=== PATIENT | male | born 1945 | race Caucasian/White ===

== ENCOUNTER 2016-09-02 15:35 | Inpatient (IN) | payer MEDICARE ==
[~2016-09-02] VITALS: Ht 177.8 cm; Wt 90.0 kg
[~2016-09-02 15:35] MED LIST: AMBI10TA PO; LOSA50TA PO; PRED1SUS EACH EYE; PREV30CA11 PO; SIMV40TA PO
[2016-09-02 15:39] VITALS: BP 154/80; PULSE 80; RESP 20; TEMP 97.9; O2SAT 96
--- NOTE | 2016-09-02 15:52 | PD ---
Physical Exam Time Seen by Provider: 15:48 Narrative 71yo M c/o disorientation, lightheadedness, numbness to back of neck started last night w/ worsening of sx this morning. Denies focal deficits or weakness, slurred speech, CINTRON, fever, vomiting, chest pain, SOB, abd pain. Patient seen in triage. VS reviewed. Awaiting bed placement. Data Data Last Documented VS Vital Signs Date Time Temp Pulse Resp B/P Pulse Ox O2 Delivery O2 Flow Rate FiO2 09/02/16 15:39 97.9 80 20 154/80 96 Room Air MDM Supervised Visit with MELISSA: Teena Hobson Sep 02, 2016 15:52
[2016-09-02] MEDS ORDERED: TRAZ50TA12 PO (16:02)
[2016-09-02] MEDS ORDERED: SODIUM CHLOR 0.9% 1000 ML INJ 1,000 ML IV SCH ×2 (16:15→18:45)
--- NOTE | 2016-09-02 16:18 | PD ---
HPI Chief Complaint: Neuro Symptoms/ Deficits Time Seen by Provider: 16:02 Travel History International Travel<30 days: No Contact w/Intl Traveler<30days: No Traveled to known affect area: No History of Present Illness HPI 71-year-old male complains of lightheadedness, dizziness, disorientation, blurring vision and numbness third to the neck and back area. Patient states that the symptoms started last night. Patient denies any headache. Patient states that the dizziness is not associated with head movement. Patient states that the dizziness is worse on standing up physician. Patient denies any neck pain. Patient states that he had numbness to neck and upper back last night but not today. Patient denies any chest pain or shortness of breath. Patient denies abdominal pain. Patient denies any nausea vomiting diarrhea. Patient denies any fever chills. Patient denies any recent head injury. Patient denies any history of TIA or CVA. Patient has history GERD, hypertension, hyperlipidemia. Patient denies any history diabetes. Patient is a nonsmoker. Patient denies any illicit drugs or alcohol abuse. PFSH Past Medical History Autoimmune Disease: No Blood Disorders: No Anxiety: No Depression: No Cancer: No Cardiovascular Problems: Yes (htn) High Cholesterol: Yes Chemotherapy: No Cerebrovascular Accident: No Diabetes: No Diminished Hearing: No GERD: Yes Glaucoma: No Headaches: No Hepatitis: No Hiatal Hernia: No Hypertension: Yes Musculoskeletal: No Neurologic: No Psychiatric: No Respiratory: No Seizures: No Thyroid Disease: No Past Surgical History Abdominal Surgery: No Ear Surgery: No Endocrine Surgery: No Eye Surgery: No Genitourinary Surgery: No Gynecologic Surgery: No Oral Surgery: No Pacemaker: No Thoracic Surgery: No Other Surgery: Yes Social History Alcohol Use: No Tobacco Use: No Substance Use: No Allergies-Medications (Allergen,Severity, Reaction): Coded Allergies: No Known Allergies (Verified , 09/02/16) Reported Meds & Prescriptions Reported Meds & Active Scripts Active Reported Trazodone (Trazodone HCl) 50 Mg Tab 50 Mg PO HS Pred Forte Opth 1% (Prednisolone Acetate Opth 1%) 1% Susp 1 Drop EACH EYE QID Prevacid (Lansoprazole) 30 Mg Capdr 30 Mg PO DAILY Losartan (Losartan Potassium) 50 Mg Tab 50 Mg PO DAILY Simvastatin 40 Mg Tab 40 Mg PO HS Ambien (Zolpidem Tartrate) 10 Mg Tab 10 Mg PO HS PRN Review of Systems General / Constitutional: No: Fever Eyes: Positive: Blurred Vision, No: Visual changes HENT: Positive: Lightheadedness, No: Headaches Cardiovascular: No: Chest Pain or Discomfort Respiratory: No: Shortness of Breath Gastrointestinal: No: Abdominal Pain Genitourinary: No: Dysuria Musculoskeletal: No: Pain Skin: No Rash Neurologic: No: Weakness Psychiatric: No: Depression Endocrine: No: Polydipsia Hematologic/Lymphatic: No: Easy Bruising Physical Exam Narrative GENERAL: Well-nourished, well-developed patient. SKIN: Focused skin assessment warm/dry. HEAD: Normocephalic. EYES: No scleral icterus. No injection or drainage. Pupils 2 mm equal reactive. NECK: Supple, trachea midline. No JVD or lymphadenopathy. CARDIOVASCULAR: Regular rate and rhythm without murmurs, gallops, or rubs. RESPIRATORY: Breath sounds equal bilaterally. No accessory muscle use. GASTROINTESTINAL: Abdomen soft, non-tender, nondistended. MUSCULOSKELETAL: No cyanosis, or edema. BACK: Nontender without obvious deformity. No CVA tenderness. Neurologic exam: Patient's awake and alert oriented 3. No obvious focal neurological deficit. Deep tendon reflexes 2+ and equal. Negative Babinski. Data Data Last Documented VS Vital Signs Date Time Temp Pulse Resp B/P Pulse Ox O2 Delivery O2 Flow Rate FiO2 09/02/16 17:34 72 20 150/72 09/02/16 16:36 100 09/02/16 15:39 97.9 Room Air Orders Complete Blood Count With Diff (09/02/16 16:08) Comprehensive Metabolic Panel (09/02/16 16:08) Creatine Kinase (Cpk) (09/02/16 16:08) Troponin I (09/02/16 16:08) Prothrombin Time / Inr (Pt) (09/02/16 16:08) Act Partial Throm Time (Ptt) (09/02/16 16:08) Urinalysis - C+S If Indicated (09/02/16 16:08) Thyroid Stimulating Hormone (09/02/16 16:08) Chest, Single Ap (09/02/16 16:08) Ct Brain W/O Iv Contrast(Rout) (09/02/16 16:08) Iv Access Insert/Monitor (09/02/16 16:08) Ecg Monitoring (09/02/16 16:08) Oximetry (09/02/16 16:08) Sodium Chlor 0.9% 1000 Ml Inj (Ns 1000 M (09/02/16 16:15) CKMB (09/02/16 16:20) CKMB% (09/02/16 16:20) Mri Brain W/O Contrast (09/02/16 17:51) Mra Brain W/O Contrast (Cow) (09/02/16 17:51) Mra Carotids W Contrast (09/02/16 17:51) Electrocardiogram (09/02/16 16:00) Labs Laboratory Tests Test 09/02/16 16:20 White Blood Count 5.6 TH/MM3 Red Blood Count 5.14 MIL/MM3 Hemoglobin 14.9 GM/DL Hematocrit 45.4 % Mean Corpuscular Volume 88.3 FL Mean Corpuscular Hemoglobin 29.0 PG Mean Corpuscular Hemoglobin 32.8 % Concent Red Cell Distribution Width 14.6 % Platelet Count 204 TH/MM3 Mean Platelet Volume 8.0 FL Neutrophils (%) (Auto) 59.9 % Lymphocytes (%) (Auto) 27.4 % Monocytes (%) (Auto) 9.1 % Eosinophils (%) (Auto) 2.9 % Basophils (%) (Auto) 0.7 % Neutrophils # (Auto) 3.4 TH/MM3 Lymphocytes # (Auto) 1.5 TH/MM3 Monocytes # (Auto) 0.5 TH/MM3 Eosinophils # (Auto) 0.2 TH/MM3 Basophils # (Auto) 0.0 TH/MM3 CBC Comment DIFF FINAL Differential Comment Prothrombin Time 10.2 SEC Prothromb Time International 0.9 RATIO Ratio Activated Partial 26.8 SEC Thromboplast Time Sodium Level 142 MEQ/L Potassium Level 4.2 MEQ/L Chloride Level 107 MEQ/L Carbon Dioxide Level 27.8 MEQ/L Anion Gap 7 MEQ/L Blood Urea Nitrogen 20 MG/DL Creatinine 1.50 MG/DL Estimat Glomerular Filtration 46 ML/MIN Rate Random Glucose 96 MG/DL Calcium Level 9.1 MG/DL Total Bilirubin 0.4 MG/DL Aspartate Amino Transf 25 U/L (AST/SGOT) Alanine Aminotransferase 42 U/L (ALT/SGPT) Alkaline Phosphatase 59 U/L Total Creatine Kinase 311 U/L Creatine Kinase MB 2.5 NG/ML Creatine Kinase MB % 0.8 % Troponin I LESS THAN 0.02 NG/ML Total Protein 7.1 GM/DL Albumin 3.8 GM/DL Thyroid Stimulating Hormone 1.380 uIU/ML [address] [place] [address] Medical Decision Making Medical Screen Exam Complete: Yes Emergency Medical Condition: Yes Interpretation(s) Last Impressions Head CT 09/02/161607 Signed Impressions: Service Date/Time: Friday, September 02, 2016 16:52 - CONCLUSION: Normal examination for a patient of this age. Bo Peacock MD Chest X-Ray 09/02/161607 Signed Impressions: Service Date/Time: Friday, September 02, 2016 16:13 - CONCLUSION: 1. No acute cardiopulmonary disease. Houston Mcneill MD 1748 PM. CBC within normal limit. 1824 PM. BUN 20. Creatinine 1.50. Cardiac enzymes are normal. Differential Diagnosis Differential diagnosis including viral syndrome, migraine complex, TIA, CVA, electrolyte abnormality, dehydration, vertigo. Narrative Course 71-year-old male with lightheadedness dizziness or disorientation blurry vision and numbness to the mid back and neck. Normal saline solution 70 cc an hour. Head of bed at 30. O2 2 L nasal cannula. Neurology consultation. I spoke with Dr. Nava, neurologist studio control operator. Patient will be admitted to rule out CVA. Diagnosis Primary Impression: Acute CVA (cerebrovascular accident) Reji Person MD Sep 02, 2016 16:17
--- NOTE | 2016-09-02 16:32 | RADRPT ---
EXAM DATE/TIME: 09/02/2016 16:13 [facility] COMPARISON: No previous studies available for comparison. INDICATIONS : Dizziness, weakness, and shortness of breath. MEDICAL HISTORY : None. SURGICAL HISTORY : None. ENCOUNTER: Initial ACUITY: 2 days PAIN SCORE: 0/10 LOCATION: chest FINDINGS: A single view of the chest demonstrates the lungs to be symmetrically aerated without evidence of mas s, infiltrate or effusion. The cardiomediastinal contours are unremarkable. Osseous structures are intact. CONCLUSION: 1. No acute cardiopulmonary disease. Houston Mcneill MD on September 02, 2016 at 16:30 Board Certified Radiologist. This report was verified electronically.
[2016-09-02 16:36] VITALS: O2SAT 100
--- NOTE | 2016-09-02 17:01 | RADRPT ---
EXAM DATE/TIME: 09/02/2016 16:52 [facility] COMPARISON: No previous studies available for comparison. INDICATIONS : Lightheaded,blurred vision, numbness to mid back. RADIATION DOSE: 37.36 CTDIvol (mGy) MEDICAL HISTORY : Cardiovascular disease. Hypertension. SURGICAL HISTORY : None. ENCOUNTER: Initial ACUITY: 1 day PAIN SCALE: 0/10 LOCATION: Bilateral cranial TECHNIQUE: Multiple contiguous axial images were obtained of the head. Using automated exposure control and adj ustment of the mA and/or kV according to patient size, radiation dose was kept as low as reasonably a chievable to obtain optimal diagnostic quality images. DICOM format image data is available electro nically for review and comparison. FINDINGS: CEREBRUM: The ventricles are normal for age. No evidence of midline shift, mass lesion, hemorrhage or acute in farction. No extra-axial fluid collections are seen. POSTERIOR FOSSA: The cerebellum and brainstem are intact. The 4th ventricle is midline. The cerebellopontine angle i s unremarkable. EXTRACRANIAL: The visualized portion of the orbits is intact. SKULL: The calvaria is intact. No evidence of skull fracture. CONCLUSION: Normal examination for a patient of this age. Bo Peacock MD on September 02, 2016 at 16:59 Board Certified Radiologist. This report was verified electronically.
[2016-09-02 17:02] LABS: AUTOMATED NEUTROPHIL # 3.4 TH/MM3 (1.8-7.7); BASOPHIL % 0.7 % (0.0-2.0); EOSINOPHIL # 0.2 TH/MM3 (0-0.4); EOSINOPHIL % 2.9 % (0.0-4.0); HEMATOCRIT 45.4 % (39.0-51.0); HEMO FLAGS DIFF FINAL; LYMPH % 27.4 % (9.0-44.0); LYMPHOCYTE # 1.5 TH/MM3 (1.0-4.8); MEAN CELL VOLUME 88.3 FL (80.0-100.0); MEAN CORPUSCULAR HGB CONC 32.8 % (32.0-36.0); MONO % 9.1 % (0.0-8.0); NEUT % 59.9 % (16.0-70.0); PLATELET COUNT 204 TH/MM3 (150-450); RED BLOOD COUNT 5.14 MIL/MM3 (4.50-5.90); RED CELL DISTRIBUTION WIDTH 14.6 % (11.6-17.2); WHITE BLOOD COUNT 5.6 TH/MM3 (4.0-11.0)
[2016-09-02 17:19] LABS: APTT (PATIENT) 26.8 SEC (24.3-30.1); INTERNATIONAL NORMALIZED RATIO 0.9 RATIO; PROTHROMBIN TIME - PATIENT 10.2 SEC (9.8-11.6)
[2016-09-02 17:34] VITALS: BP 150/72; PULSE 72; RESP 20
[2016-09-02 17:38] LABS: ALKALINE PHOSPHATASE 59 U/L (45-117); CREATINE KINASE 311 U/L (39-308); TOTAL BILIRUBIN ADULT 0.4 MG/DL (0.2-1.0)
[2016-09-02 17:50] LABS: CKMB 2.5 NG/ML (0.5-3.6)
[2016-09-02 18:07] LABS: ALT (GPT) 42 U/L (12-78); ANION GAP 7 MEQ/L (5-15); AST (GOT) 25 U/L (15-37); BICARBONATE 27.8 MEQ/L (21.0-32.0); BLOOD UREA NITROGEN 20 MG/DL (7-18); CHLORIDE 107 MEQ/L (98-107); GLOMERULAR FILTRATION RATE 46 ML/MIN (>89); POTASSIUM 4.2 MEQ/L (3.5-5.1); SODIUM (NA) 142 MEQ/L (136-145)
[2016-09-02] MEDS ORDERED: SODIUM CHLORIDE 0.9% FLUSH 10 ML FLUSH IVF PRN (18:45)
[2016-09-02] MEDS ORDERED: ACETAMINOPHEN 325 MG TAB PO PRN ×2 (18:45→19:15)
[2016-09-02] MEDS ORDERED: ONDANSETRON HCL 4 MG/2 ML VIAL IV PRN (18:45)
[2016-09-02] MEDS ORDERED: NALOXONE HCL 0.4 MG/ML AMP IV PRN (19:15)
[2016-09-02] MEDS ORDERED: ONDANSETRON HCL 4 MG/2 ML VIAL IVP PRN (19:15)
[2016-09-02] MEDS ORDERED: ENALAPRILAT 1.25 MG/ML VIAL IV PRN (19:15)
[2016-09-02] MEDS ORDERED: SODIUM CHLORIDE 0.9% FLUSH 10 ML FLUSH IV FLUSH PRN (19:15)
[2016-09-02] MEDS ORDERED: MAGNESIUM HYDROXIDE SUSP 30 ML CUP PO PRN (19:15)
--- NOTE | 2016-09-02 19:33 | RADRPT ---
EXAM DATE/TIME: 09/02/2016 18:39 [facility] COMPARISON: No previous studies available for comparison. INDICATIONS : Dizziness. Unsteady gait. MEDICAL HISTORY : Hypertension. SURGICAL HISTORY : Bilateral shoulder. ENCOUNTER: Initial ACUITY: 1 day PAIN SCORE: 0/10 LOCATION: cranial Please note a normal MRA of the brain does not entirely exclude the possibility of a small aneurysm, nor the possibility of distal intracranial vessel disease. TECHNIQUE: 3D time of flight MRA was performed. Source images, multiplanar STS MIP, and 3D volume MIP reconstru ctions were reviewed. FINDINGS: There is moderate intracranial atherosclerotic vascular disease. There is an M1 stenosis on the righ t. CONCLUSION: Moderate intracranial mass disease without major branch vessel occlusion. M1 stenosis on the right. Dominic Davenport MD FACR on September 02, 2016 at 19:30 Board Certified Radiologist. This report was verified electronically.
--- NOTE | 2016-09-02 19:34 | RADRPT ---
EXAM DATE/TIME: 09/02/2016 18:39 [facility] COMPARISON: No previous studies available for comparison. INDICATIONS : Dizziness. Unsteady gait. CONTRAST: 20 cc Omniscan (gadodiamide) IV MEDICAL HISTORY : Hypertension. SURGICAL HISTORY : Bilateral shoulder. ENCOUNTER: Initial ACUITY: 1 day PAIN SCORE: 0/10 LOCATION: neck Percent stenosis is calculated using the diameter of the stenotic region over the diameter of the nor mal distal internal carotid artery. TECHNIQUE: Bolus infused MRA of the extracranial circulation was performed using a neurovascular coil. Post pro cessing was performed including rotating subvolume maximum intensity projections of each carotid cristina ry, rotating full volume maximum intensity projections of both carotid arteries, sagittal and coronal sliding thin slab reformations of each carotid artery, and left oblique sliding thin slab reformatio n through the aortic arch to include the origin of the arch branch vessels. FINDINGS: AORTIC ARCH: There is a three vessel origin of the great vessels from the aorta. No evidence of ostial narrowing. RIGHT CAROTID: The common carotid artery is intact. The carotid bulb has a normal configuration without ulceration or narrowing. The internal carotid artery lumen is smooth without stenosis. The external carotid ar nirmala is intact. LEFT CAROTID: The common carotid artery is intact. The carotid bulb has a normal configuration without ulceration or narrowing. The internal carotid artery lumen is smooth without stenosis. The external carotid ar nirmala is intact. VERTEBRALS: The vertebral arteries have a symmetric diameter. No stenotic lesions are seen. CONCLUSION: Negative MRA of the carotids. Dominic Davenport MD FACR on September 02, 2016 at 19:32 Board Certified Radiologist. This report was verified electronically.
--- NOTE | 2016-09-02 19:43 | RADRPT ---
EXAM DATE/TIME: 09/02/2016 18:39 [facility] COMPARISON: No previous studies available for comparison. INDICATIONS : Dizziness. Unsteady gait. MEDICAL HISTORY : Hypertension. SURGICAL HISTORY : Bilateral shoulder ENCOUNTER: Initial ACUITY: 1 day PAIN SCORE: 0/10 LOCATION: Cranial TECHNIQUE: Multiplanar, multisequence MRI of the brain was performed without contrast. FINDINGS: Moderate periventricular white matter changes are noted. Ventricular sizes are appropriate. There i s no restricted diffusion to suggest acute ischemic event. There is no parenchymal hemorrhage. Midline structures are intact. There are no extraaxial fluid collections appreciated. Posterior fos sa is unremarkable. Orbits are unremarkable. CONCLUSION: Mild periventricular white matter changes, otherwise negative. Dominic Davenport MD FACR on September 02, 2016 at 19:33 Board Certified Radiologist. This report was verified electronically.
[2016-09-02] MEDS ORDERED: GADODIAMIDE PF 287 MG/ML 20 ML VIAL (for RAD MRI) IV ONE (19:57)
[2016-09-02 20:07] VITALS: BP 174/84; PULSE 70; RESP 16; O2SAT 97
[2016-09-02] MEDS ORDERED: SODIUM CHLORIDE 0.9% FLUSH 10 ML FLUSH IV FLUSH SCH (21:00)
[2016-09-02 21:30] VITALS: PULSE 63
[2016-09-02 21:45] VITALS: BP 168/85; PULSE 67; RESP 17; TEMP 97.4; O2SAT 98
[2016-09-02] MEDS: traZODone HCL 50 MG TAB PO SCH (21:53)
[2016-09-02] MEDS: PRAVASTATIN SOD 80 MG TAB PO SCH (21:53)
[2016-09-02] MEDS: SODIUM CHLORIDE 0.9% FLUSH 10 ML FLUSH IV FLUSH SCH (21:54)
[2016-09-02] MEDS: prednisoLONE ACETATE 1% OPHT SUSP 5 ML BTL EACH EYE SCH (22:54)
[2016-09-02 23:16] LABS: BLOOD, URINE NEG (NEG); COMMENT (UR) CULT NOT INDICATED; CULTURE IF INDICATED CULT NOT INDICATED; GLUCOSE,URINE NEG (NEG); KETONE, URINE NEG (NEG); MUCUS URINE FEW /lpf (OCC); NITRITE,URINE NEG (NEG); SQUAMOUS EPITHELIAL CELL URINE <1 /hpf (0-5); URINE COLOR LIGHT-YELLOW (YELLW/STRAW)
[2016-09-02] MEDS ORDERED: WELLTAB39 PO (23:45)
[2016-09-02] MEDS ORDERED: PROZ20CA11 PO (23:46)
[2016-09-02] MEDS ORDERED: LOSA100T PO (23:47)
[2016-09-03] VITALS (8 sets, daily range): BP systolic 144–183; BP diastolic 72–85; PULSE 58–76; RESP 18–20; TEMP 96–98.1; O2SAT 96–99
[2016-09-03] MEDS: PANTOPRAZOLE SOD 40 MG DELAYED RELEASE TAB PO SCH (08:23)
[2016-09-03] MEDS: ASPIRIN 325 MG TAB PO SCH (08:23)
[2016-09-03] MEDS: prednisoLONE ACETATE 1% OPHT SUSP 5 ML BTL EACH EYE SCH ×4 (08:23→20:47)
[2016-09-03] MEDS: SODIUM CHLORIDE 0.9% FLUSH 10 ML FLUSH IV FLUSH SCH ×2 (08:23→20:44)
[2016-09-03 09:00] LABS: AUTOMATED NEUTROPHIL # 2.2 TH/MM3 (1.8-7.7); BASOPHIL % 0.9 % (0.0-2.0); EOSINOPHIL # 0.2 TH/MM3 (0-0.4); EOSINOPHIL % 4.6 % (0.0-4.0); HEMATOCRIT 43.8 % (39.0-51.0); HEMO FLAGS DIFF FINAL; LYMPH % 32.2 % (9.0-44.0); LYMPHOCYTE # 1.4 TH/MM3 (1.0-4.8); MEAN CELL VOLUME 88.2 FL (80.0-100.0); MEAN CORPUSCULAR HEMOGLOBIN 29.1 PG (27.0-34.0); MONO % 11.7 % (0.0-8.0); NEUT % 50.6 % (16.0-70.0); PLATELET COUNT 184 TH/MM3 (150-450); RED BLOOD COUNT 4.97 MIL/MM3 (4.50-5.90); RED CELL DISTRIBUTION WIDTH 14.6 % (11.6-17.2); WHITE BLOOD COUNT 4.4 TH/MM3 (4.0-11.0)
[2016-09-03 09:23] LABS: POTASSIUM 4.1 MEQ/L (3.5-5.1)
--- NOTE | 2016-09-03 16:15 | HHI.HP ---
HPI Service [facility] Hospitalists Primary Care Physician Sheng Cool MD Admission Diagnosis acute CVA Chief Complaint: dizziness Travel History International Travel<30 Days: No Contact w/Intl Traveler <30 Da: No Traveled to Known Affected Are: No History of Present Illness Patient is a pleasant 71-year-old male with history of hypertension, pulmonary hypertension, atherosclerosis of the aorta. Patient presented to the ER with complaint of acute onset of confusion with slurred speech and double vision. Patient also complained of unsteady gait and vertigo. Patient's complaints have resolved and patient is able to ambulate in his room without difficulty. Patient voices that he is concerned about possible developing dementia. Patient states that he will occasionally loses things which is frustrating. Patient denies difficulties with word recall. Patient denies difficulty with directions were becoming lost. Review of Systems Constitutional: DENIES: Diaphoretic episodes, Fatigue, Fever, Weight gain, Weight loss, Chills, Dizziness, Change in appetite, Night Sweats Endocrine: DENIES: Heat/cold intolerance, Polydipsia, Polyuria, Polyphagia Eyes: DENIES: Blurred vision, Diplopia, Eye inflammation, Eye pain, Vision loss , Photosensitivity, Double Vision Ears, nose, mouth, throat: DENIES: Tinnitus, Hearing loss, Vertigo, Nasal discharge, Oral lesions, Throat pain, Hoarseness, Ear Pain, Running Nose, Epistaxis, Sinus Pain, Toothache, Odynophagia Respiratory: DENIES: Apneas, Cough, Snoring, Wheezing, Hemoptysis, Sputum production, Shortness of breath Cardiovascular: DENIES: Chest pain, Palpitations, Syncope, Dyspnea on Exertion , PND, Lower Extremity Edema, Orthopnea, Claudication Gastrointestinal: DENIES: Abdominal pain, Black stools, Bloody stools, BRB per rectum, Constipation, Diarrhea, GERD, Nausea, Reflux, Vomiting, Difficulty Swallowing, Anorexia Genitourinary: DENIES: Urinary frequency, Urinary incontinence, Urgency, Hematuria, Dysuria, Nocturia Musculoskeletal: DENIES: Joint pain, Muscle aches, Stiffness, Joint Swelling, Back pain, Neck pain Integumentary: DENIES: Abnormal pigmentation, Nail changes, Pruritus, Rash Hematologic/lymphatic: DENIES: Bruising, Lymphadenopathy Immunologic/allergic: DENIES: Eczema, Urticaria Neurologic: DENIES: Abnormal gait, Headache, Localized weakness, Paresthesias, Seizures, Speech Problems, Tremor, Poor Balance Psychiatric: DENIES: Anxiety, Confusion, Mood changes, Depression, Hallucinations, Agitation, Suicidal Ideation, Homicidal Ideation, Delusions, History of Bipolar, History of Schizophrenia Past Family Social History Past Medical History 1) hypertension 2) atherosclerosis of the aorta 3) restless leg syndrome 4) depression 5) pulmonary hypertension 6) GERD 7) hypogonadism, on testosterone replacement 8) insomnia Past Surgical History 1) EGD and colonoscopy Allergies: Coded Allergies: No Known Allergies (Verified , 09/02/16) Family History Noncontributory Social History - Never a smoker - No alcohol use - No illicit street drugs Physical Exam Vital Signs Vital Signs Date Time Temp Pulse Resp B/P Pulse Ox O2 Delivery O2 Flow Rate FiO2 09/03/16 12:00 97.8 67 20 183/81 97 09/03/16 08:22 97 21 09/03/16 08:00 96.0 74 20 173/85 96 09/03/16 07:20 58 09/03/16 05:40 98.0 66 20 144/80 99 09/03/16 00:40 98.1 64 18 148/74 99 09/02/16 21:45 97.4 67 17 168/85 98 09/02/16 21:30 63 09/02/16 20:07 70 16 174/84 97 Room Air 09/02/16 17:34 72 20 150/72 09/02/16 16:36 100 Physical Exam GENERAL: This is a well-nourished, well-developed patient, in no apparent distress. SKIN: No rashes, ecchymoses or lesions. Cool and dry. HEAD: Atraumatic. Normocephalic. No temporal or scalp tenderness. EYES: Pupils equal round and reactive. Extraocular motions intact. No scleral icterus. No injection or drainage. ENT: Nose without bleeding, purulent drainage or septal hematoma. Throat without erythema, tonsillar hypertrophy or exudate. Uvula midline. Airway patent. NECK: Trachea midline. No JVD or lymphadenopathy. Supple, nontender, no meningeal signs. CARDIOVASCULAR: Regular rate and rhythm without murmurs, gallops, or rubs. RESPIRATORY: Clear to auscultation. Breath sounds equal bilaterally. No wheezes , rales, or rhonchi. GASTROINTESTINAL: Abdomen soft, non-tender, nondistended. No hepato-splenomegaly , or palpable masses. No guarding. MUSCULOSKELETAL: Extremities without clubbing, cyanosis, or edema. No joint tenderness, effusion, or edema noted. No calf tenderness. Negative Homans sign bilaterally. NEUROLOGICAL: Awake and alert. Cranial nerves II through XII intact. Motor and sensory grossly within normal limits. Five out of 5 muscle strength in all muscle groups. Normal speech. Laboratory Laboratory Tests Test 09/02/16 09/02/16 09/03/16 16:20 22:50 07:58 White Blood Count 5.6 4.4 Red Blood Count 5.14 4.97 Hemoglobin 14.9 14.4 Hematocrit 45.4 43.8 Mean Corpuscular Volume 88.3 88.2 Mean Corpuscular Hemoglobin 29.0 29.1 Mean Corpuscular Hemoglobin 32.8 33.0 Concent Red Cell Distribution Width 14.6 14.6 Platelet Count 204 184 Mean Platelet Volume 8.0 7.7 Neutrophils (%) (Auto) 59.9 50.6 Lymphocytes (%) (Auto) 27.4 32.2 Monocytes (%) (Auto) 9.1 11.7 Eosinophils (%) (Auto) 2.9 4.6 Basophils (%) (Auto) 0.7 0.9 Neutrophils # (Auto) 3.4 2.2 Lymphocytes # (Auto) 1.5 1.4 Monocytes # (Auto) 0.5 0.5 Eosinophils # (Auto) 0.2 0.2 Basophils # (Auto) 0.0 0.0 CBC Comment DIFF FINAL DIFF FINAL Differential Comment Prothrombin Time 10.2 Prothromb Time International 0.9 Ratio Activated Partial 26.8 Thromboplast Time Sodium Level 142 140 Potassium Level 4.2 4.1 Chloride Level 107 106 Carbon Dioxide Level 27.8 28.0 Anion Gap 7 6 Blood Urea Nitrogen 20 20 Creatinine 1.50 1.17 Estimat Glomerular Filtration 46 61 Rate Random Glucose 96 115 Calcium Level 9.1 8.8 Total Bilirubin 0.4 Aspartate Amino Transf 25 (AST/SGOT) Alanine Aminotransferase 42 (ALT/SGPT) Alkaline Phosphatase 59 Total Creatine Kinase 311 Creatine Kinase MB 2.5 Creatine Kinase MB % 0.8 Troponin I LESS THAN 0.02 Total Protein 7.1 Albumin 3.8 Thyroid Stimulating Hormone 1.380 3rd Gen Urine Color LIGHT-YELLOW Urine Turbidity CLEAR Urine pH 5.0 Urine Specific [place] 1.021 Urine Protein NEG Urine Glucose (UA) NEG Urine Ketones NEG Urine Occult Blood NEG Urine Nitrite NEG Urine Bilirubin NEG Urine Urobilinogen LESS THAN 2.0 Urine Leukocyte Esterase NEG Urine WBC 2 Urine Squamous Epithelial <1 Cells Urine Mucus FEW Microscopic Urinalysis Comment CULT NOT INDICATED Triglycerides Level 317 Cholesterol Level 150 LDL Cholesterol 55 HDL Cholesterol 32.0 Cholesterol/HDL Ratio 4.68 Result Diagram: 09/03/16 0758 09/03/16 0758 Imaging Last Impressions Neck Magnetic Resonance Angiography 09/02/161750 Signed Impressions: Service Date/Time: Friday, September 02, 2016 18:39 - CONCLUSION: Negative MRA of the carotids. Dominic Davenport MD FACR Head Magnetic Resonance Angiography 09/02/161750 Signed Impressions: Service Date/Time: Friday, September 02, 2016 18:39 - CONCLUSION: Moderate intracranial mass disease without major branch vessel occlusion. M1 stenosis on the right. Dominic Davenport MD FACR Brain MRI 09/02/161750 Signed Impressions: Service Date/Time: Friday, September 02, 2016 18:39 - CONCLUSION: Mild periventricular white matter changes, otherwise negative. Dominic Davenport MD FACR Head CT 09/02/16 160 Signed Impressions: Service Date/Time: Friday, September 02, 2016 16:52 - CONCLUSION: Normal examination for a patient of this age. Bo Peacock MD Chest X-Ray 09/02/16 1608 Signed Impressions: Service Date/Time: Friday, September 02, 2016 16:13 - CONCLUSION: 1. No acute cardiopulmonary disease. Houston Mcneill MD Septic Shock Reassessment Heart: Regular rate and rhythm Lungs: Clear Skin: Warm Peripheral Pulses: Bounding Right Radial Bounding Left Radial Bounding Right Popliteal Bounding Left Popliteal Bounding Right Dorsalis Pedis Bounding Left Dorsalis Pedis Bounding Right Posterior Tibial Bounding Left Posterior Tibial Capillary Refill: Brisk Assessment and Plan Problem List: (1) TIA (transient ischemic attack) Status: Acute Plan: - comgmt with Neurology - Case d/w Dr. Nava (09/03/16) - CT brain (09/02/16) --> NO acute findings - MRI brain (09/02/16) --> NO acute findings - MRA brain (09/02/16) --> NO hemodynamically significant stenosis - TSH, free T4, B12, folate, RPR --> pending - LDL --> 55 - triglycerides 317 - start tricor 145mg daily - resume cozaar - anticipate d/c to home 09/04/16 - ASA 325mg daily - observe on telemetry - obtain holter - obtain echocardiogram (2) HTN (hypertension) Status: Acute Plan: - permissive HTN - start reigning in blood pressure - resume cozaar at 50mg BID (100mg daily at home) (3) Insomnia Status: Acute Plan: - trazadone Physician Certification 2 Midnight Certification Type: Admission for Inpatient Services Order for Inpatient Services The services are ordered in accordance with Medicare regulations or non- Medicare payer requirements, as applicable. In the case of services not specified as inpatient-only, they are appropriately provided as inpatient services in accordance with the 2-midnight benchmark. Estimated LOS (days): 3 3 days is the estimated time the patient will need to remain in the hospital, assuming treatment plan goals are met and no additional complications. Post-Hospital Plan: Home Problem Qualifiers (1) TIA (transient ischemic attack): Qualified Code: G45.9 - Transient cerebral ischemia, unspecified type (2) HTN (hypertension): Qualified Code: I10 - Essential hypertension (3) Insomnia: Qualified Code: G47.00 - Insomnia, unspecified type Blayne Montero DO Sep 03, 2016 16:15
--- NOTE | 2016-09-03 16:36 | EKG ---
Date Performed: 09/02/2016 Time Performed: 16:00:12 PTAGE: 71 years EKG: Sinus rhythm SEPTAL MYOCARDIAL INFARCTION ABNORMAL ECG INTERPRETATION BASED ON A DEFAULT AGE OF 40 YEARS PREVIOUS TRACING : 01/30/2015 16.38 Compared to the previous tracing, now with poor R wav e progression, possible septal myocardial infarction DOCTOR: Lucio Abebe Interpretating Date/Time 09/03/2016 16:35:29
--- NOTE | 2016-09-03 16:49 | MB ---
cc: ALAN PHIPPS M.D. DATE OF CONSULTATION: 09/03/2016. REASON FOR CONSULTATION: Vertigo. TIA. HISTORY OF PRESENT ILLNESS: Mr. Garcia is a very nice 71-year-old man who yesterday had acute onset of confusion, disorientation, slurring of his speech as well as double vision and a severe sense of vertigo and unsteadiness of gait. His symptoms have largely improved. He is back to baseline at the present time. PAST MEDICAL HISTORY: 1. Hypertension. 2. Hyperlipidemia. 3. Gastroesophageal reflux disease (GERD). 4. History of vertigo in the past. MEDICATIONS AT HOME: 1. Trazodone. 2. Pred-Forte eye drops. 3. Prevacid. 4. Losartan. 5. Simvastatin. 6. Ambien. ALLERGIES: NONE KNOWN. NEUROLOGICAL EXAMINATION: HIGHER CORTICAL FUNCTIONS: Higher cortical functions are normal at this time. CRANIAL NERVES: Cranial nerves II-XII are normal. There is no nystagmus. The extraocular movements intact. MOTOR EXAM: On motor exam, he has normal strength and tone of all groups. There is no drift. CEREBELLAR: Cerebellar testing is normal. REFLEXES: Reflexes are symmetric. VITAL SIGNS: Blood pressure 183/81, pulse 67, respirations 20, temperature 97.8 degrees. IMAGING STUDIES: Brain MRI normal for age with chronic ischemic change. No acute stroke present. MRA shows mild to moderate atherosclerotic change. MRA of the neck is normal with no sign of any significant carotid stenosis. CT brain unremarkable. LABORATORY DATA: White count 4400, hemoglobin 14.4, hematocrit 43.8%, platelets 184, 000. Sodium is 140, potassium 4.1, chloride 106, CO2 28, the BUN is 20, creatinine 1.17, GFR 61, glucose 115, AST 25, ALT 42, triglycerides 317, cholesterol 150, LDL 55, HDL 32. PT 10, INR 0.9, APTT 26.8. IMPRESSION: Probable vertebrobasilar TIA. RECOMMENDATIONS: 1. Will get an echocardiogram to rule out any cardiac embolic source. 2. Also monitor cardiac telemetry to rule out atrial fibrillation. 3. Recommend starting aspirin 325 milligrams daily. MD SUPRIYA Wiley/DILLON /3:29 PM /4:47 PM
[2016-09-03] MEDS: LISINOPRIL 10 MG TAB PO SCH ×2 (17:26→20:44)
[2016-09-03] MEDS: LOSARTAN 50 MG TAB PO SCH ×2 (17:26→20:44)
[2016-09-03] MEDS: traZODone HCL 50 MG TAB PO SCH (20:44)
[2016-09-03] MEDS: PRAVASTATIN SOD 80 MG TAB PO SCH (20:44)
[2016-09-04] VITALS: BP 131/60; PULSE 64; RESP 20; TEMP 96.7; O2SAT 96
[2016-09-04 04:00] VITALS: BP 151/85; PULSE 68; RESP 20; TEMP 96.8; O2SAT 94
[2016-09-04 08:00] VITALS: PULSE 58
[2016-09-04 08:34] VITALS: BP 149/72; PULSE 70; RESP 20; TEMP 96.3; O2SAT 96
[2016-09-04] MEDS: LISINOPRIL 10 MG TAB PO SCH (08:59)
[2016-09-04] MEDS: ASPIRIN 325 MG TAB PO SCH (08:59)
[2016-09-04] MEDS: SODIUM CHLORIDE 0.9% FLUSH 10 ML FLUSH IV FLUSH SCH (08:59)
[2016-09-04] MEDS: PANTOPRAZOLE SOD 40 MG DELAYED RELEASE TAB PO SCH (08:59)
[2016-09-04] MEDS: LOSARTAN 50 MG TAB PO SCH (08:59)
[2016-09-04] MEDS: prednisoLONE ACETATE 1% OPHT SUSP 5 ML BTL EACH EYE SCH ×2 (09:01→11:20)
[2016-09-04 12:32] VITALS: BP 137/72; PULSE 64; RESP 20; TEMP 96.7; O2SAT 96
--- NOTE | 2016-09-04 13:02 | HHI.PR ---
Review/Management Diagnosis possible vertebro basilar tia Plan ok form neuro standpoint to discharge home on asa and follow up with me in 2 weeks Diagnosis/Plan: Subjective Subjective Comments No acute events reported No further episodes of double vision or vertigo Active Medications Current Medications Medications (Trade) Dose Ordered Sig/Joan Route Start Time Stop Time Status Last Admin (Zofran Inj) 4 mg Q6H PRN IV 09/02/16 18:45 (Tylenol) 650 mg Q4H PRN PO 09/02/16 18:45 (NS Flush) 2 ml BID IV FLUSH 09/02/16 21:00 09/04/16 08:59 (NS Flush) 2 ml UNSCH PRN IVF 09/02/16 18:45 (Aspirin) 325 mg DAILY PO 09/03/16 09:00 09/04/16 08:59 (NS Flush) 2 ml UNSCH PRN IV FLUSH 09/02/16 19:15 (Tylenol) 650 mg Q4H PRN PO 09/02/16 19:15 (Zofran Inj) 4 mg Q6H PRN IVP 09/02/16 19:15 (Narcan Inj) 0.4 mg UNSCH PRN IV 09/02/16 19:15 (Milk Of Magnesia Liq) 30 ml Q12H PRN PO 09/02/16 19:15 (Vasotec Inj) 1.25 mg Q4H PRN IV 09/02/16 19:15 (Pred Forte 1% Opth Susp) 1 drop QID EACH EYE 09/02/16 21:00 09/04/16 11:20 (Desyrel) 50 mg HS PO 09/02/16 21:00 09/03/16 20:44 (Protonix) 40 mg DAILY PO 09/03/16 09:00 09/04/16 08:59 (Pravachol) 80 mg HS PO 09/02/16 21:00 09/03/16 20:44 (Cozaar) 50 mg Q12HR PO 09/03/16 16:45 09/04/16 08:59 Allergies Allergies Coded Allergies No Known Allergies (Verified09/02/16) Exam I&O / VS 09/03/16 09/03/16 09/04/16 15:00 23:00 07:00 Intake Total 480 ml 240 ml Balance 480 ml 240 ml Intake Oral 480 ml 240 ml # Voids 3 3 # Bowel Movements 1 0 Vital Signs Date Time Temp Pulse Resp B/P Pulse Ox O2 Delivery O2 Flow Rate FiO2 09/04/16 12:32 96.7 64 20 137/72 96 09/04/16 08:34 96.3 70 20 149/72 96 09/04/16 08:00 58 09/04/16 04:00 96.8 68 20 151/85 94 09/04/16 00:00 96.7 64 20 131/60 96 09/03/16 20:00 76 09/03/16 20:00 97.8 70 20 155/72 96 09/03/16 16:00 96.8 74 20 173/85 97 Exam Comments alert, oriented, speech normal CN 2-12 normal MOTOR--5/5 BUE and BLE Objective Diagnostic Tests ECHO-pending Isai Nava PhD Sep 04, 2016 13:02
--- NOTE | 2016-09-04 13:50 | HM ---
Date Performed: 09/03/2016 Time Performed: 10:20:00 HOOKUP DATE: 09/03/16 10:20:00 AM Sat ANALYSIS START TIME: 09/03/2016 10:25:00 AM ANALYSIS END TIME: 09/04/2016 10:24:27 AM PATIENT AGE: 71 PATIENT HEIGHT: 70 PATIENT WEIGHT: 213 DRUG LIST PATIENT DIAGNOSIS: Acute CVA/Afib TEST NARRATIVE: The patient's average heart rate was 67 BPM. No episodes of tachycardia wer e noted. Heart rates less than 50 BPM were noted 2% of the time. No pauses exceeding 2.0 seconds were noted. 40 ventricular ectopics, which represented < 1% of the total beat count, were noted. The highest ventricular ectopic frequency occurred from 01:00 PM to 02:00 PM Sat. During this time 8 VE(s) occurred. Ventricular ectopics were observed as 40 isolated beat(s) only. No couplets or r uns were noted. 20 supraventricular ectopics, which represented < 1% of the total beat count, wer e noted. The highest supraventricular ectopic frequency occurred from 08:00 AM to 09:00 AM Sun. Dur ing this time 4 SVE(s) occurred. Multiple episodes of ST depression (defined as -1.0 mm or more) were noted in channel 1. The maximum depression of -1.5 mm occurred at 06:11:38 PM Sat. No episode s of ST depression (defined as -1.0 mm or more) were noted in channel 2. No episodes of ST depressio n (defined as -1.0 mm or more) were noted in channel 3. TEST INTERPRETATION: 1) Sinus rhythm , rare sinus bradycardia 2) Rare PVC/PACs 3) No arrhythmias noted 4) ST depression noted in channel 1 , no ST changes in channel 2 or 3 5) No diary with symptoms available Signed by : Lucio Abebe
[2016-09-04 14:21] LABS: FREE T4 0.82 NG/DL (0.76-1.46)
--- NOTE | 2016-09-04 15:28 | ECHRPT ---
Indication: CVA/TIA CONCLUSIONS Normal left ventricular size and wall thickness. The left ventricular systolic function is normal wi th an estimated ejection fraction in the range of 60-65%. Doppler parameters are consistent with impaired left ventricular relaxtion (grade 1 diastolic dysfunction). BP: / HR: 70 Rhythm: Sinus MEASUREMENTS (Male / Female) Normal Values Technical Quality:Good 2D ECHO LV Diastolic Diameter PLAX 4.5 cm 4.2 - 5.9 / 3.9 - 5.3 cm LV Systolic Diameter PLAX 3.3 cm IVS Diastolic Thickness 1.1 cm 0.6 - 1.0 / 0.6 - 0.9 cm LVPW Diastolic Thickness 1.1 cm 0.6 - 1.0 / 0.6 - 0.9 cm LV Relative Wall Thickness 0.5 LVOT Diameter 2.0 cm M-MODE Aortic Root Diameter MM 3.4 cm LA Systolic Diameter MM 2.4 cm LA Ao Ratio MM 0.7 AV Cusp Separation MM 2.1 cm DOPPLER AV Peak Velocity 128.0 cm/s AV Peak Gradient 6.6 mmHg LVOT Peak Velocity 102.0 cm/s LVOT Peak Gradient 4.2 mmHg AV Area Cont Eq pk 2.5 cm Mitral E Point Velocity 52.8 cm/s Mitral A Point Velocity 70.1 cm/s Mitral E to A Ratio 0.8 LV E' Lateral Velocity 7.1 cm/s Mitral E to LV E' Lateral Ratio 7.4 LV E' Septal Velocity 5.7 cm/s Mitral E to LV E' Septal Ratio 9.3 TR Peak Velocity 206.0 cm/s TR Peak Gradient 17.0 mmHg PV Peak Velocity 88.2 cm/s PV Peak Gradient 3.1 mmHg FINDINGS LEFT VENTRICLE Wall thickness is measured at the upper limits of normal. Normal left ventricular size and wall thickness. The left ventricular systolic function is normal wi th an estimated ejection fraction in the range of 60-65%. Doppler parameters are consistent with impaired left ventricular relaxtion (grade 1 diastolic dysfunction). There is trace tricuspid valve regurgitation. The estimated pulmonary arterial pressure is 27 mmHg. RIGHT VENTRICLE Normal right ventricular size and systolic function. LEFT ATRIUM The left atrial size is normal. RIGHT ATRIUM The right atrial size is normal. ATRIAL SEPTUM Normal atrial septal thickness without atrial level shunting by limited color doppler interrogation. AORTA The aortic root and proximal ascending aorta are normal in size on limited imaging. MITRAL VALVE Structurally normal mitral valve. No mitral valve stenosis or regurgitation. AORTIC VALVE Trileaflet aortic valve. No aortic valve stenosis or regurgitation. TRICUSPID VALVE There is trace tricuspid valve regurgitation. The estimated pulmonary arterial pressure is 27 mmHg. PULMONARY VALVE The pulmonary valve is not well visualized. VESSELS The inferior vena cava is normal in size. PERICARDIUM No pericardial effusion. Julio Marc MD (Electronically Signed) Final Date:04 September 2016 15:27
--- NOTE | 2016-09-04 15:41 | HHI.PR ---
Subjective Remarks No limb weakness. No difficulty walking. No difficulty swallowing or speech. Objective Vitals Vital Signs Date Time Temp Pulse Resp B/P Pulse Ox O2 Delivery O2 Flow Rate FiO2 09/04/16 12:32 96.7 64 20 137/72 96 09/04/16 08:34 96.3 70 20 149/72 96 09/04/16 08:00 58 09/04/16 04:00 96.8 68 20 151/85 94 09/04/16 00:00 96.7 64 20 131/60 96 09/03/16 20:00 76 09/03/16 20:00 97.8 70 20 155/72 96 09/03/16 16:00 96.8 74 20 173/85 97 09/03/16 09/03/16 09/04/16 15:00 23:00 07:00 Intake Total 480 ml 240 ml Balance 480 ml 240 ml Intake Oral 480 ml 240 ml # Voids 3 3 # Bowel Movements 1 0 Result Diagram: 09/03/16 0758 09/03/16 075 Imaging Last Impressions Neck Magnetic Resonance Angiography 09/02/161750 Signed Impressions: Service Date/Time: Friday, September 02, 2016 18:39 - CONCLUSION: Negative MRA of the carotids. Dominic Davenport MD FACR Head Magnetic Resonance Angiography 09/02/161750 Signed Impressions: Service Date/Time: Friday, September 02, 2016 18:39 - CONCLUSION: Moderate intracranial mass disease without major branch vessel occlusion. M1 stenosis on the right. Dominic Davenport MD FACR Brain MRI 09/02/161750 Signed Impressions: Service Date/Time: Friday, September 02, 2016 18:39 - CONCLUSION: Mild periventricular white matter changes, otherwise negative. Dominic Davenport MD FACR Head CT 09/02/161607 Signed Impressions: Service Date/Time: Friday, September 02, 2016 16:52 - CONCLUSION: Normal examination for a patient of this age. Bo Peacock MD Chest X-Ray 09/02/161607 Signed Impressions: Service Date/Time: Friday, September 02, 2016 16:13 - CONCLUSION: 1. No acute cardiopulmonary disease. Houston Mcneill MD Objective Remarks GENERAL: This is a well-nourished, well-developed patient, in no apparent distress. CARDIOVASCULAR: Regular rate and rhythm without murmurs, gallops, or rubs. RESPIRATORY: Clear to auscultation. Breath sounds equal bilaterally. No wheezes , rales, or rhonchi. GASTROINTESTINAL: Abdomen soft, non-tender, nondistended. Normal active bowel sounds MUSCULOSKELETAL: Extremities without clubbing, cyanosis, or edema. NEURO: Alert & Oriented x4 to person, place, time, situation. Moves all ext x4 A/P Problem List: (1) TIA (transient ischemic attack) Status: Acute Plan: - comgmt with Neurology - Case d/w Dr. Nava (09/03/16) - CT brain (09/02/16) --> NO acute findings - MRI brain (09/02/16) --> NO acute findings - MRA brain (09/02/16) --> NO hemodynamically significant stenosis - TSH, free T4, B12, folate--> WNL - RPR --> pending - LDL --> 55 - triglycerides 317 - start tricor 145mg daily - resume cozaar - ASA 325mg daily - holter --> pending - echocardiogram --> results pending - discharge to home today - keep home BP log - Pt may require further adjustment of his blood pressure medication outpt. - f/u with PCP in 1 week - f/u with Dr. Nava, Neurology, in 4 weeks. (2) HTN (hypertension) Status: Acute Plan: - resume cozaar - see above (3) Insomnia Status: Acute Plan: - trazadone Problem Qualifiers (1) TIA (transient ischemic attack): Qualified Code: G45.9 - Transient cerebral ischemia, unspecified type (2) HTN (hypertension): Qualified Code: I10 - Essential hypertension (3) Insomnia: Qualified Code: G47.00 - Insomnia, unspecified type Blayne Montero DO Sep 04, 2016 15:41
[2016-09-04] MEDS ORDERED: ASPI325T PO (15:42)
--- NOTE | 2016-09-04 15:47 | HHI.DCPOC ---
Discharge Care Plan Diagnosis: (1) TIA (transient ischemic attack) (2) HTN (hypertension) Goals to Promote Your Health * To prevent worsening of your condition and complications * To maintain your health at the optimal level Directions to Meet Your Goals Take your medications as prescribed Follow your dietary instruction Follow activity as directed Keep your appointments as scheduled Take your immunizations and boosters as scheduled If your symptoms worsen call your PCP, if no PCP go to Urgent Care Center or Emergency Room Smoking is Dangerous to Your Health. Avoid second hand smoke Call the 24-hour hour crisis hotline for domestic abuse at Blayne Montero DO Sep 04, 2016 15:46
[2016-09-04 16:15] VITALS: BP 126/69; PULSE 66; RESP 20; TEMP 96.9; O2SAT 96
[2016-09-05 10:01] LABS: RAPID PLASMA REAGIN SCREEN NON-REACTIVE (NON-REACTVE)
== END 2016-09-04 17:38 | disposition home or self-care (01) | DRG 69 ==
LOC: NEPC 15:35 → NEDA 18:40 → N05A 20:40
PROVIDERS: ADMIT Hospitalist; ATTEND Hospitalist
DX: G45.0 Vertebro-basilar artery syndrome (principal); I27.2 Other secondary pulmonary hypertension; I10 Essential (primary) hypertension; I70.0 Atherosclerosis of aorta; K21.9 Gastro-esophageal reflux disease without esophagitis; G47.00 Insomnia, unspecified; E78.5 Hyperlipidemia, unspecified
CPT/HCPCS: 70450; 70544; 70548; 70551; 71010; 80048; 80053; 80061; 81001; 82140; 82550; 82552; 82607; 82746; 84439; 84443; 84484; 85025; 85610; 85730; 86592; 93005; 93225; 93226; 93306; 96360; A9579; J7030